=== PATIENT | male | born 1965 | race Caucasian/White ===

== ENCOUNTER 2016-12-01 06:41 | Emergency (ER) | payer OTHER ==
[~2016-12-01] VITALS: Ht 177.8 cm; Wt 82.0 kg
[2016-12-01] MEDS ORDERED: TRAMADOL HCL50 MG PO ×2 (07:19→07:32)
[2016-12-01] MEDS ORDERED: CLEOCIN300 MG PO (07:19)
[2016-12-01] MEDS ORDERED: SEROQUEL100 MG PO (07:29)
[2016-12-01] MEDS ORDERED: COMBIVENT RESPIM4 GM IH (07:29)
[2016-12-01] MEDS ORDERED: LO-DOSE ASPIRIN81 M2 PO (07:29)
[2016-12-01] MEDS ORDERED: ADDERALL XR 2525 MG PO (07:30)
[2016-12-01] MEDS ORDERED: VITAMIN B-1100 MG PO (07:30)
[2016-12-01] MEDS ORDERED: FOLIC ACID1 MG PO (07:30)
[2016-12-01] MEDS ORDERED: PRAVACHOL40 MG PO (07:31)
[2016-12-01] MEDS ORDERED: FLOVENT DISKUS1 DIS1 IH (07:31)
[2016-12-01] MEDS ORDERED: TOPROL XL100 MG PO (07:31)
[2016-12-01] MEDS ORDERED: ONDANSETRON HCL4 MG PO (07:32)
[2016-12-01] MEDS ORDERED: PRILOSEC OTC20 MG PO (07:32)
[2016-12-01] MEDS ORDERED: DAILY MULTIPLE1 EACH PO (07:32)
[2016-12-01 07:35] VITALS: BP 138/95
== END 2016-12-01 07:35 | disposition home or self-care (01) ==
LOC: EME 06:41
DX: K12.2 Cellulitis and abscess of mouth (principal); J44.9 Chronic obstructive pulmonary disease, unspecified; I10 Essential (primary) hypertension; E78.5 Hyperlipidemia, unspecified; Z86.73 Personal history of transient ischemic attack (TIA), and cerebral infarction without residual deficits; Z72.0 Tobacco use; Z71.6 Tobacco abuse counseling
CPT/HCPCS: 99281; 99284

== ENCOUNTER → 2018-01-08 | Outpatient (CLI) | payer OTHER ==
[~2018-01-08] VITALS: Ht 179.1 cm; Wt 78.0 kg
[~2018-01-08] MED LIST: ADDERALL XR 1515 MG PO; CLEOCIN300 MG PO; COMBIVENT RESPIM4 GM IH; DAILY MULTIPLE1 EACH PO; FLOVENT DISKUS1 DIS1 IH; FOLIC ACID1 MG PO; LO-DOSE ASPIRIN81 M2 PO; ONDANSETRON HCL4 MG PO; PRAVACHOL40 MG PO; PREDNISONE20 MG PO; PRILOSEC OTC20 MG PO; SEROQUEL100 MG PO; TOPROL XL100 MG PO; TRAMADOL HCL50 MG PO; VENTOLIN HFA18 GM IH; VIBRAMYCIN100 MG PO; VITAMIN B-1100 MG PO
[2018-01-08 14:38] LABS: HEMATOCRIT 41.5 % (38.0-50.0); HEMOGLOBIN 13.7 G/DL (12.5-16.6); MCH 27.8 PG (29.0-34.0); MCV 84.2 FL (86-99); PLATELET COUNT 265 K/uL (156-360); RBC DIS.WIDTH-CV 13.7 % (11.8-14.6); RBC DIS.WIDTH-SD 42.5 % (39-53); RED BLOOD COUNT 4.93 M/uL (4.00-5.50); WHITE BLOOD COUNT 7.2 K/uL (4.1-10.2)
[2018-01-08 14:43] LABS: INTER. NORMALIZED RATIO 1.3
[2018-01-08 14:45] LABS: PTT 34.6 SEC (25-37)
== END | disposition home or self-care (01) ==
LOC: AMB 14:06
PROVIDERS: Internal Medicine Pulmonary Disease
DX: C34.11 Malignant neoplasm of upper lobe, right bronchus or lung (principal); F17.200 Nicotine dependence, unspecified, uncomplicated; J44.9 Chronic obstructive pulmonary disease, unspecified; I10 Essential (primary) hypertension; Z88.0 Allergy status to penicillin; Z88.5 Allergy status to narcotic agent
CPT/HCPCS: 85027; 85610; 85730; 87070; 87205; 88108; 88173; 88305; 88341 TC; 88342 TC; J0171; J0461; J2250; J2550

== ENCOUNTER 2018-01-15 14:34 | Emergency (ER) | payer OTHER ==
[~2018-01-15] VITALS: Ht 177.8 cm; Wt 73.4 kg
[2018-01-15 15:15] LABS: HEMATOCRIT 44.3 % (38.0-50.0); MCH 28.6 PG (29.0-34.0); MCHC 33.9 G/DL (30.0-36.0); MCV 84.5 FL (86-99); PLATELET COUNT 244 K/uL (156-360); RBC DIS.WIDTH-CV 13.7 % (11.8-14.6); RBC DIS.WIDTH-SD 42.5 % (39-53); RED BLOOD COUNT 5.24 M/uL (4.00-5.50); WHITE BLOOD COUNT 7.4 K/uL (4.1-10.2)
[2018-01-15 15:25] LABS: CHLORIDE 101 mEq/L (99-109); POTASSIUM 4.3 mEq/L (3.7-5.4); SODIUM 139 mEq/L (136-147)
[2018-01-15 15:27] LABS: GLUCOSE 93 mg/dL (70-99)
[2018-01-15 15:31] LABS: CREATININE 0.8 mg/dL (0.6-1.3); GFR ESTIMATE (CALCULATED) > 59 mL/min/ (58.99-99999)
[2018-01-15 15:32] LABS: UREA NITROGEN (BUN) 11 mg/dL (9-23)
[2018-01-15 15:34] LABS: TROP-I INTERPRETATION NEGATIVE; TROPONIN-I < 0.01 ng/mL (0.0-0.30)
[2018-01-15 16:48] VITALS: BP 108/75
== END 2018-01-15 16:54 | disposition home or self-care (01) ==
LOC: EME 14:34
DX: R91.8 Other nonspecific abnormal finding of lung field (principal); K21.9 Gastro-esophageal reflux disease without esophagitis; F17.200 Nicotine dependence, unspecified, uncomplicated; Z79.82 Long term (current) use of aspirin; Z88.5 Allergy status to narcotic agent; F90.9 Attention-deficit hyperactivity disorder, unspecified type
CPT/HCPCS: 71046; 80048; 84484; 85027; 93005; 99281; 99284

== ENCOUNTER 2018-01-21 13:28 | Inpatient (IN) | payer OTHER ==
[2018-01-21 15:22] LABS: HEMATOCRIT 43.3 % (38.0-50.0); HEMOGLOBIN 14.4 G/DL (12.5-16.6); MCH 28.1 PG (29.0-34.0); MCHC 33.3 G/DL (30.0-36.0); MCV 84.6 FL (86-99); PLATELET COUNT 193 K/uL (156-360); RBC DIS.WIDTH-CV 13.3 % (11.8-14.6); RBC DIS.WIDTH-SD 41.1 % (39-53); RED BLOOD COUNT 5.12 M/uL (4.00-5.50); WHITE BLOOD COUNT 8.4 K/uL (4.1-10.2)
[2018-01-21 15:45] LABS: ALBUMIN 3.5 G/DL (3.2-4.8); ALKALINE PHOSPHATASE 60 IU/L (3-129); ALT (GPT) 8 IU/L (3-49); AST (GOT) 12 IU/L (2-34); CHLORIDE 101 MEQ/L (99-109); CREATININE 0.9 MG/DL (0.6-1.3); GFR ESTIMATE (CALCULATED) > 59 mL/min/ (58.99-99999); GLUCOSE 79 mg/dL (70-99); POTASSIUM 4.1 MEQ/L (3.7-5.4); SODIUM 137 MEQ/L (136-147); TOTAL BILIRUBIN 0.6 MG/DL (0.0-1.0); TOTAL PROTEIN 6.1 G/DL (6.4-8.3)
[2018-01-21 15:48] LABS: UREA NITROGEN (BUN) 21 mg/dL (9-23)
[2018-01-21 18:03] VITALS: BP 121/73
[2018-01-22 02:36] VITALS: BP 104/62
[2018-01-22 05:50] LABS: HEMATOCRIT 39.7 % (38.0-50.0); HEMOGLOBIN 13.1 G/DL (12.5-16.6); MCH 27.7 PG (29.0-34.0); MCV 83.9 FL (86-99); PLATELET COUNT 213 K/uL (156-360); RBC DIS.WIDTH-CV 13.2 % (11.8-14.6); RBC DIS.WIDTH-SD 40.7 % (39-53); RED BLOOD COUNT 4.73 M/uL (4.00-5.50); WHITE BLOOD COUNT 5.5 K/uL (4.1-10.2)
[2018-01-22 06:31] LABS: CHLORIDE 100 MEQ/L (99-109); CREATININE 0.8 MG/DL (0.6-1.3); GFR ESTIMATE (CALCULATED) > 59 mL/min/ (58.99-99999); GLUCOSE 93 mg/dL (70-99); POTASSIUM 4.4 MEQ/L (3.7-5.4); SODIUM 134 MEQ/L (136-147); UREA NITROGEN (BUN) 17 mg/dL (9-23)
[2018-01-22 07:11] VITALS: BP 94/60
[2018-01-22 11:01] VITALS: BP 107/61
[2018-01-22 15:19] VITALS: BP 105/59
[2018-01-23] VITALS: BP 146/84
[2018-01-23 05:43] LABS: BASOPHIL (%) 0 % (0-1); EOSINOPHIL (%) 0 % (0-5); HEMATOCRIT 33.6 % (38.0-50.0); HEMOGLOBIN 11.5 G/DL (12.5-16.6); IMMATURE GRANULOCYTE (%) 0.4 % (0.0-0.7); LYMPHOCYTE (%) 10.4 % (15-42); MCHC 34.2 G/DL (30.0-36.0); MCV 84.8 FL (86-99); MONOCYTE COUNT 0.4 K/uL (0-0.8); NEUTROPHIL (%) 85.2 % (45-76); PLATELET COUNT 205 K/uL (156-360); RBC DIS.WIDTH-CV 13.5 % (11.8-14.6); RED BLOOD COUNT 3.96 M/uL (4.00-5.50); WHITE BLOOD COUNT 9.4 K/uL (4.1-10.2)
[2018-01-23 06:26] LABS: CHLORIDE 107 MEQ/L (99-109); CREATININE 0.9 MG/DL (0.6-1.3); GFR ESTIMATE (CALCULATED) > 59 mL/min/ (58.99-99999); GLUCOSE 136 mg/dL (70-99); POTASSIUM 4.1 MEQ/L (3.7-5.4); SODIUM 142 MEQ/L (136-147); UREA NITROGEN (BUN) 13 mg/dL (9-23)
[2018-01-23 07:12] VITALS: BP 107/62
[2018-01-23 16:16] VITALS: BP 101/59
[2018-01-23 23:38] VITALS: BP 105/59
[2018-01-24 05:58] LABS: BASOPHIL (%) 0.1 % (0-1); EOSINOPHIL (%) 0 % (0-5); HEMATOCRIT 34.3 % (38.0-50.0); HEMOGLOBIN 11.5 G/DL (12.5-16.6); IMMATURE GRANULOCYTE (%) 0.4 % (0.0-0.7); LYMPHOCYTE (%) 12.9 % (15-42); LYMPHOCYTE COUNT 1.2 K/uL (1.0-2.8); MCH 28.3 PG (29.0-34.0); MCHC 33.5 G/DL (30.0-36.0); MCV 84.5 FL (86-99); MONOCYTE COUNT 0.4 K/uL (0-0.8); NEUTROPHIL (%) 82.6 % (45-76); NEUTROPHIL COUNT 7.9 K/uL (1.8-6.4); PLATELET COUNT 213 K/uL (156-360); RBC DIS.WIDTH-CV 13.8 % (11.8-14.6); RED BLOOD COUNT 4.06 M/uL (4.00-5.50); WHITE BLOOD COUNT 9.6 K/uL (4.1-10.2)
[2018-01-24 06:20] LABS: CHLORIDE 105 MEQ/L (99-109); CREATININE 0.8 MG/DL (0.6-1.3); GFR ESTIMATE (CALCULATED) > 59 mL/min/ (58.99-99999); GLUCOSE 121 mg/dL (70-99); POTASSIUM 3.9 MEQ/L (3.7-5.4); SODIUM 142 MEQ/L (136-147); UREA NITROGEN (BUN) 17 mg/dL (9-23)
[2018-01-24 08:19] VITALS: BP 116/66
[2018-01-24] MEDS ORDERED: ZOFRAN4 MG PO (14:39)
[2018-01-24] MEDS ORDERED: LEVETIRACETAM500 MG PO (14:40)
[2018-01-24] MEDS ORDERED: DOCUSATE SODIU100 MG PO (14:41)
[2018-01-24] MEDS ORDERED: DEXAMETHASONE4 MG PO (14:42)
[2018-01-24] MEDS ORDERED: BUTALB-APAP-CA1 EACH PO (14:46)
== END 2018-01-24 16:18 | disposition home or self-care (01) | DRG 54 ==
LOC: ENRESERV 13:28 → 5EAST 13:28 → ENRESERV 13:35 → 5EAST 13:59
PROVIDERS: Family Medicine; Internal Medicine
DX: C79.31 Secondary malignant neoplasm of brain (principal); G43.909 Migraine, unspecified, not intractable, without status migrainosus; G93.6 Cerebral edema; G93.89 Other specified disorders of brain; G93.5 Compression of brain; J44.9 Chronic obstructive pulmonary disease, unspecified; I10 Essential (primary) hypertension; C34.11 Malignant neoplasm of upper lobe, right bronchus or lung; E78.5 Hyperlipidemia, unspecified; K21.9 Gastro-esophageal reflux disease without esophagitis; M54.9 Dorsalgia, unspecified; G89.29 Other chronic pain; Z80.8 Family history of malignant neoplasm of other organs or systems; F17.210 Nicotine dependence, cigarettes, uncomplicated; F90.9 Attention-deficit hyperactivity disorder, unspecified type; F31.9 Bipolar disorder, unspecified; E86.0 Dehydration; R11.2 Nausea with vomiting, unspecified; Z86.73 Personal history of transient ischemic attack (TIA), and cerebral infarction without residual deficits; Z77.090 Contact with and (suspected) exposure to asbestos; E86.1 Hypovolemia; I31.3 Pericardial effusion (noninflammatory)
CPT/HCPCS: 70551; 70553; 77290; 77307; 77331; 77334; 77412; 77417; 80048; 80053; 85025; 85027; 94640; 94640 76; 96360; 96361; 96375; 99202; J1100; J1650; J2405; J7030; J8540

== ENCOUNTER 2018-05-09 06:55 | Day surgery (SDC) | payer OTHER ==
[~2018-05-09] VITALS: Ht 179.1 cm; Wt 64.0 kg
[~2018-05-09 06:55] MED LIST changes: +BUTALB-APAP-CA1 EACH PO; +DEXAMETHASONE4 MG PO; +DOCUSATE SODIU100 MG PO; +LEVETIRACETAM500 MG PO; +ZOFRAN4 MG PO
== END 2018-05-09 10:02 | disposition home or self-care (01) ==
LOC: CATH 06:55
DX: Z45.2 Encounter for adjustment and management of vascular access device (principal); I87.8 Other specified disorders of veins; C34.90 Malignant neoplasm of unspecified part of unspecified bronchus or lung; I10 Essential (primary) hypertension; F17.200 Nicotine dependence, unspecified, uncomplicated; Z88.0 Allergy status to penicillin; Z88.5 Allergy status to narcotic agent
CPT/HCPCS: C1788; C1894; J1200; J1644; J2250; J3010; S0020